=== PATIENT | female | born 1975 | race Caucasian/White ===

== ENCOUNTER 2021-10-13 12:33 | Emergency (ER) | payer OTHER, SELFPAY ==
--- NOTE | 2021-10-13 12:39 | ED.URI ---
HPI - URI/Sore Throat General Chief Complaint: Upper Respiratory Infection Stated Complaint: Cough,Sinus Time Seen by Provider: 10/13/21 13:00 Source: patient, family, RN notes reviewed and old records reviewed Mode of arrival: ambulatory Limitations: no limitations History of Present Illness HPI Narrative: 45-year-old female presents to the [facility] with complaints of cough, x1 week. Denies chest pain has had intermittent shortness of breath with cough. Denies any fevers, nausea, vomiting or diarrhea. Related Data Home Medications Medication Instructions Recorded Confirmed bupropion HCl 150 mg PO DAILY 10/13/21 10/13/21 dextroamphetamine-amphetamine 10 mg PO DAILY 10/13/21 10/13/21 lisinopril 10 mg PO DAILY 10/13/21 10/13/21 norethindrone-e.estradiol-iron 1 tablet PO DAILY 10/13/21 10/13/21 [08/29 (28)] nortriptyline 25 mg PO DAILY 10/13/21 10/13/21 Allergies Allergy/AdvReac Type Severity Reaction Status Date / Time No Known Allergies Allergy Unverified 10/13/21 12:37 Review of Systems Review of Systems: All systems reviewed & are unremarkable except as noted in HPI and below Constitutional: Constitutional: Reports no additional constitutional complaints, Denies chills, Denies fever(s) and Denies headache(s) Eyes: Eyes: Reports no additional eye complaints ENT: Reports as per HPI, Denies vertigo, Denies dizziness, Denies headache(s), Denies nasal congestion and Denies sore throat Cardiovascular: Cardiovascular: Reports no additional cardiovascular complaints, Denies chest pain, Denies syncope, Denies rapid heart rate and Denies dyspnea Respiratory: Respiratory: Reports as per HPI, Reports cough, Reports dyspnea and Denies wheezing Gastrointestinal: Gastrointestinal: Reports no additional gastrointestinal complaints, Denies abdominal pain, Denies diarrhea, Denies nausea and Denies vomiting Musculoskeletal: Musculoskeletal: Reports no additional musculoskeletal complaints and Denies numbness Integumentary/Breasts: Skin/Breast: Reports system reviewed and no additional complaints, except as docu Neurologic: Reports system reviewed and no additional complaints, except as documented, Denies vertigo, Denies dizziness, Denies syncope, Denies headache(s), Denies focal weakness and Denies numbness Psychiatric: Psychiatric: Reports no additional psychiatric complaints Allergic/Immunologic: Allergic/Immunologic: Reports no additional allergic/immunologic complaints and Denies wheezing PMFSH Family History Family History Father Family history of hypercholesterolemia Acute myocardial infarction Mother Hypertension Sibling Family history of malignant melanoma Social History Social History Smoking status: Never smoker Alcohol intake: current Comments At the time of my signature, I reviewed and agree with the nursing past medical, surgical, social, and family history. There is no relevant family history pertinent to the patient complaint. Exam Const: General: cooperative, healthy appearing, no acute distress, well developed and alert Nutritional Appearance: well nourished Orientation/consciousness: patient oriented x3 Limitations: no limitations HENMT: Head: normal to inspection Ears: hearing grossly normal bilaterally, external ears normal, TM normal on the right, mastoids normal, no periauricular adenopathy and TM abnormal with myringotomy tube present (Left ear) General nose exam: Normal external nose present, Normal nasal mucous membranes and turbinates present and No nasal discharge present Mouth: Yes Normal oral and palatal mucosa present Throat: posterior oropharynx normal, tonsils normal, uvula midline, posterior oropharynx abnormal and no uvular edema Eyes: Conjunctivae: conjunctivae normal Pupils: Equal, round and reactive pupils present Neck: Neck: normal visual inspection,
[2021-10-13 13:04] VITALS: BP 133/92; PULSE 116; RESP 18; TEMP 36.7; O2SAT 100
== END 2021-10-13 13:23 | disposition home or self-care (01) ==
PROVIDERS: Emergency Provider Nurse Practitioner
DX: J40 Bronchitis, not specified as acute or chronic (principal)
CPT/HCPCS: 99213; G0463

== ENCOUNTER → 2022-11-17 13:28 | Outpatient (CLI) | payer OTHER, SELFPAY ==
--- NOTE | ~2022-11-17 | CT_ITS ---
Non-contrast CT scan of the Abdomen and Pelvis Clinical indication: Umbilical hernia, right groin pain Technique: 2.5 mm axial scans were obtained through the abdomen and pelvis without intravenous or or al contrast. Dose reduction technique was used on this scan by utilizing automated exposure control a nd iterative reconstruction technique. The dose-length product (DLP) was 277.16 mGy-cm. Findings: Images through the lung bases reveal no abnormalities. There is no evidence of renal or ureteral calculi. The kidneys and the ureters are nondilated. The liver, spleen, pancreas, gallbladder, and adrenals appear normal. There is no aortic aneurysm. There is no evidence of bowel obstruction. No distinct evidence for acute appendicitis. Tiny fat-cont aining umbilical hernia noted. Images through the pelvis were performed. There is no evidence of ascites or lymphadenopathy. Urinary bladder unremarkable. No adnexal mass evident. Impression: Tiny fat-containing umbilical hernia. Reviewed, dictated and finalized at [facility]. Impression: Tiny fat-containing umbilical hernia.
== END ==
PROVIDERS: PCP Surgery; Visit Provider Surgery
DX: K42.9 Umbilical hernia without obstruction or gangrene (principal); R10.31 Right lower quadrant pain
CPT/HCPCS: 74176

== ENCOUNTER 2023-01-16 09:03 | Outpatient (CLI) | payer OTHER, SELFPAY ==
--- NOTE | 2023-01-16 09:00 | ECG_ITS ---
Measurements Intervals [place] Rate: 118 P: 74 CT: 116 QRS: 52 QRSD: 77 T: 65 QT: 340 QTc: 478 Interpretive Statements SINUS TACHYCARDIA INDETERMINATE AXIS ABNORMAL RHYTHM ECG NO PREVIOUS ECG AVAILABLE FOR COMPARISON Electronically Signed On 01-16-2023 12:53:04 CDT by Anthony Butt M.D.
== END 2023-01-16 09:04 | disposition home or self-care (01) ==
LOC: ANHSURGERY 09:07
PROVIDERS: Visit Provider Surgery
DX: K42.9 Umbilical hernia without obstruction or gangrene (principal); I10 Essential (primary) hypertension; Z01.818 Encounter for other preprocedural examination
CPT/HCPCS: 36415; 86850; 86900; 86901; 93005

== ENCOUNTER 2023-01-21 06:55 | Day surgery (SDC) | payer OTHER, SELFPAY ==
[2023-01-14 11:44] VITALS: BMI 21.2
--- NOTE | 2023-01-14 12:07 | PC.NURSE ---
Report to the Outpatient Waiting Room, entrance under the green pavilion located off [facility], at time 7:30 on date 01/21/23. Planned Procedure Time: 9:30. Time changes happen often and if your time is changed the preop area will call you the afternoon before. - You and your visitor will be asked to self-screen and do not enter if you have any COVID symptoms. - A mask is optional within the hospital at this time. Patients may have clear liquids (water, carbonated beverages, clear teas, apple juice) until 3 hours prior to surgery (6:30) with a maximum of 20 ounces. - No food from midnight until time of surgery Take the following medications with a SIP of water the morning of surgery: BUPROPION, INHALER IF NEEDED DO NOT STOP ANY OF YOUR OTHER PRESCRIPTION MEDICATIONS PRIOR TO SURGERY ?EXCEPT THE FOLLOWING Medications to discontinue per physician: VITAMINS/SUPPLEMENTS Date to take last dose: 01/17/23 Please no make-up, nail uzbek, hairspray, perfume, deodorant, or body powder the day of surgery. No jewelry (including any body piercings) or valuables the day of surgery, leave them at home. Please take a shower or bath the night before, or the morning of, surgery with an antibacterial soap (HIBICLENS). Wear comfortable, loose fitting clothing. - Jewelry must be removed prior to entering the operating room. Rings and piercings that are not removed may be cut off. - The hospital will not accept responsibility for valuables. - Please leave all valuables, including medications, at home the day of surgery. If you are going home after surgery, a licensed cdl bulk driver must drive you home. - NO public transportation without another adult if you receive anesthesia. - We recommend that an adult stay with you for 24 hours following discharge. - We also recommend that you do not drive, make important decision, drink alcoholic beverages, or take any drugs that were not prescribed by your health care provider for at least 24 hours after your discharge time. Follow any additional instructions given to you from your surgeon. If you or anyone in your household have experienced Covid symptoms in the past week, please notify your surgeon or the nurse liaison at the phone number below for possible testing. Telephone instructions given to PT - HARLEEN HUGO and asked if any additional questions and then verbalized understanding. Patient advised to call surgeon office or pre surgery nurse liaison [phone] if any additional questions.
--- NOTE | 2023-01-22 12:37 | SUR.PREOP ---
Paper documentation exists on this patient due to [employer] downtime on 01/21/23
== END 2023-01-21 07:30 | disposition home or self-care (01) ==
LOC: ANHSURGERY 02-13 13:56
PROVIDERS: Visit Provider Surgery
DX: K42.9 Umbilical hernia without obstruction or gangrene (principal); Z53.8 Procedure and treatment not carried out for other reasons
CPT/HCPCS: 99199

== ENCOUNTER 2023-02-04 01:00 | Day surgery (SDC) | payer OTHER, SELFPAY ==
[2023-01-30 13:36] VITALS: BMI 21.4
--- NOTE | 2023-01-30 13:44 | PC.NURSE ---
Report to the Outpatient Waiting Room, entrance under the green pavilion located off [facility], at time _0800_ on date _02/04/23_. Planned Procedure Time: _1000_. Time changes happen often and if your time is changed the preop area will call you the afternoon before. - You and your visitor will be asked to self-screen and do not enter if you have any COVID symptoms. - A mask is optional within the hospital at this time. Patients may have clear liquids (water, carbonated beverages, clear teas, apple juice) until 3 hours prior to surgery with a maximum of 20 ounces. - No food from midnight until time of surgery - Infants may have breast milk until 4 hours before surgery, infant formula 6 hours prior to surgery. - Children will be allowed to drink immediately following surgery. If applicable, please bring a bottle or sippy cup to assist with drinking. Juice, water, soda, and popsicles are readily available. For infants on formula, please bring formula the day of surgery. Pacifiers are allowed. Take the following medications with a SIP of water the morning of surgery: BUPROPION DO NOT STOP ANY OF YOUR OTHER PRESCRIPTION MEDICATIONS PRIOR TO SURGERY ?EXCEPT THE FOLLOWING Medications to discontinue per physician VITAINS 01/31/23 Date to take last dose Please no make-up, nail moldovan, hairspray, perfume, deodorant, or body powder the day of surgery. No jewelry (including any body piercings) or valuables the day of surgery, leave them at home. Please take a shower or bath the night before, or the morning of, surgery with an (HIBICLENS) antibacterial soap. Wear comfortable, loose fitting clothing. Children are encouraged to wear pajamas. - Jewelry must be removed prior to entering the operating room. Rings and piercings that are not removed may be cut off. - The hospital will not accept responsibility for valuables. - Please leave all valuables, including medications, at home the day of surgery. If you are going home after surgery, a licensed racing driver must drive you home. - NO public transportation without another adult if you receive anesthesia. - We recommend that an adult stay with you for 24 hours following discharge. - We also recommend that you do not drive, make important decision, drink alcoholic beverages, or take any drugs that were not prescribed by your health care provider for at least 24 hours after your discharge time. For Pediatric surgeries, we recommend two adults accompany the child home. Follow any additional instructions given to you from your surgeon. If you or anyone in your household have experienced Covid symptoms in the past week, please notify your surgeon or the nurse liaison at the phone number below for possible testing. Telephone instructions given to __PATIENT_and asked if any additional questions and then verbalized understanding. Patient advised to call surgeon office or pre surgery nurse liaison [phone] if any additional questions.
[2023-02-04] VITALS (12 sets, daily range): BP systolic 80–114; BP diastolic 46–71; PULSE 89–104; RESP 12–16; TEMP 36.1–36.9; O2SAT 97–100
[2023-02-04] MEDS: ACETAMINOPHEN 500 MG TABLET 1000 MG PO (08:30)
[2023-02-04] MEDS: LACTATED RINGERS 1,000 ML 30 ML IV CONT ×2 (08:40→11:28)
--- NOTE | 2023-02-04 08:55 | WPDHPUPDATE1 ---
History and Physical Update Update Date/Time: 02/04/23 08:55 History and Physical has been reviewed, including an updated exam of the patient. There are NO changes in the patient's condition. Risks, benefits, and alternatives have been discussed and questions answered. Patient agrees to proceed with procedure.
--- NOTE | 2023-02-04 08:55 | PM.IMHP ---
H&P: HPI History of Present Illness Date/Time: 02/04/23 08:55 Chief Complaint: Umbilical hernia Narrative: This is a 47-year-old woman who presents for umbilical hernia repair. She denies any changes since last seen in the office. Review of Systems Review of Systems: All systems reviewed & are unremarkable except as noted in HPI and below Constitutional: Constitutional: Denies chills, Denies fever(s), Denies headache(s) and Denies weight loss Eyes: Eyes: Denies change in vision ENT: Denies dizziness, Denies headache(s), Denies neck mass and Denies throat swelling Cardiovascular: Cardiovascular: Denies chest pain, Denies lightheadedness and Denies dyspnea Respiratory: Respiratory: Denies cough, Denies dyspnea and Denies wheezing Gastrointestinal: Gastrointestinal: Denies abdominal pain, Denies change in bowel habits, Denies nausea and Denies vomiting Genitourinary: Genitourinary: Denies hematuria and Denies dysuria Musculoskeletal: Musculoskeletal: Reports as per HPI Integumentary/Breasts: Skin/Breast: Reports as per HPI Neurologic: Denies dizziness and Denies headache(s) Allergic/Immunologic: Allergic/Immunologic: Denies throat swelling and Denies wheezing PMFSH Past Medical History Medical History Asthma Blood transfusion affecting Hypertension Seizure Surgical History Surgical History Previous section Family History Family History Father Family history of hypercholesterolemia Acute myocardial infarction Mother Hypertension Sibling Family history of malignant melanoma Social History Social History Smoking status: Never smoker Alcohol intake: current Alcohol use details: 1 DRINK A MONTH Substance use: never Substance use type: does not use Living arrangements: with family Additional living arrangements comments: CHILDREN Spiritual care concerns: No Meds Home Medications and Allergies Home Medications Medication Instructions Recorded Confirmed Type albuterol sulfate 90 mcg/actuation 2 puff inhalation QID PRN 10/13/21 01/30/23 Rx aerosol inhaler shortness of breath or wheezing #6.7 grams bupropion HCl 150 mg 24 hr tablet, 150 mg PO DAILY 10/13/21 02/04/23 History extended release dextroamphetamine-amphetamine 10 10 mg PO DAILY 10/13/21 01/30/23 History mg tablet inhalational spacing device (Space #1 ea 10/13/21 01/30/23 Rx Chamber) lisinopril 10 mg tablet 10 mg PO HS 10/13/21 01/30/23 History norethindrone 1 mg-ethinyl 1 tablet PO HS 10/13/21 01/30/23 History estradiol 20 mcg (21)-iron 75 mg (7) tablet (08/29 (28)) nortriptyline 25 mg capsule 25 mg PO HS 10/13/21 01/30/23 History cholecalciferol (vitamin D3) 125 125 mcg PO HS 01/14/23 01/30/23 History mcg (5,000 unit) tablet (Vitamin D3) omeprazole 40 mg capsule,delayed 40 mg PO BID 01/14/23 01/30/23 History release vitamin B complex 1 tablet PO DAILY 01/14/23 01/30/23 History Allergies Allergy/AdvReac Type Severity Reaction Status Date / Time No Known Allergies Allergy Verified 02/04/23 08:12 Exam Const: General: no acute distress and alert Orientation/consciousness: patient oriented x3 HENMT: Head: normocephalic and atraumatic Ears: hearing grossly normal bilaterally Face/Nose/Sinus: Normal nares present Mouth: Yes Normal oral and palatal mucosa present Eyes: Periorbital: periorbital findings normal Sclera: sclerae normal EOM: EOMs intact bilaterally Neck: Neck: normal visual inspection, no lymphadenopathy and trachea midline Chest: Chest palpation & inspection: normal inspection of the chest Resp: Effort & Inspection: normal respiratory effort Auscultation: clear to auscultation bilaterally Cardio:
--- NOTE | 2023-02-04 09:02 | WPDANESEPPF ---
Anes - Initial Pre Proc Eval Procedure: Operation Date: 02/04/23 10:00 Proposed Procedures p Laparoscopic Umbilical Hernia Repair with Mesh, Davinci Assisted - Felipe Cnitron DO Date/Time: 02/04/23 09:02 Surgeon: Felipe Cintron DO Pre Op Diagnosis: umb hernia Patient Data Age: 47 Gender: F Height: 1.6 m Weight: 55 kg Allergies Allergy/AdvReac Type Severity Reaction Status Date / Time No Known Allergies Allergy Verified 02/04/23 08:12 Home Medications Medication Instructions Recorded Confirmed Type albuterol sulfate 90 mcg/actuation 2 puff inhalation QID PRN 10/13/21 01/30/23 Rx aerosol inhaler shortness of breath or wheezing #6.7 grams bupropion HCl 150 mg 24 hr tablet, 150 mg PO DAILY 10/13/21 02/04/23 History extended release dextroamphetamine-amphetamine 10 10 mg PO DAILY 10/13/21 01/30/23 History mg tablet inhalational spacing device (Space #1 ea 10/13/21 01/30/23 Rx Chamber) lisinopril 10 mg tablet 10 mg PO HS 10/13/21 01/30/23 History norethindrone 1 mg-ethinyl 1 tablet PO HS 10/13/21 01/30/23 History estradiol 20 mcg (21)-iron 75 mg (7) tablet (Junel FE 08/29 ()) nortriptyline 25 mg capsule 25 mg PO HS 10/13/21 01/30/23 History cholecalciferol (vitamin D3) 125 125 mcg PO HS 01/14/23 01/30/23 History mcg (5,000 unit) tablet (Vitamin D3) omeprazole 40 mg capsule,delayed 40 mg PO BID 01/14/23 01/30/23 History release vitamin B complex 1 tablet PO DAILY 01/14/23 01/30/23 History Patient hx anesthesia problems: none Family hx anesthesia problems: none Results Review: All pre-operative results and documents have been reviewed as part of the pre-operative evaluation. [facility] Past Medical History Medical History Asthma Blood transfusion affecting Hypertension Seizure Surgical History Surgical History Previous section Family History Family History Father Family history of hypercholesterolemia Acute myocardial infarction Mother Hypertension Sibling Family history of malignant melanoma Social History Social History Smoking status: Never smoker Alcohol intake: current Alcohol use details: 1 DRINK A MONTH Substance use: never Substance use type: does not use Living arrangements: with family Additional living arrangements comments: CHILDREN Spiritual care concerns: No Anes - Eval Final PreProcedure Day of Procedure 02/04/23 09:02 Patient weight: normal Heart: regular rate and rhythm Lungs: clear to auscultation Airway: Mallampati scale class II Neurological: alert and oriented Last oral intake: >/= 8 hours ASA classification: II Emergent: no Anesthetic plan: proceed Anesthesia type and monitoring: general ETT Results Review: All pre-operative results and documents have been reviewed as part of the pre-operative evaluation. Informed Consent: The patient's anesthetic plan and its attendant risks and benefits were discussed with the patient/family/POA. Questions were solicited and answers provided to the satisfaction of the patient/family/POA.
[2023-02-04] MEDS: KETOROLAC 15 MG/ML VIAL (*BKC) IV PUSH (09:08)
[2023-02-04] MEDS: ceFAZolin 2 GM/D5W 50 ML 2 GM/50 ML BAG IVPB (09:24)
--- NOTE | 2023-02-04 11:21 | W.PM.PROC2 ---
Procedure Note - Detailed Date of Procedure 02/04/23 Pre-op Diagnosis umbilical hernia Post-op Diagnosis Same (1cm umbilical hernia) Procedure Performed Laparoscopic 1cm Umbilical Hernia Repair with Mesh, da Tate assisted Surgeon Felipe Cintron DO Anesthesia General and Local (Exparel) Indications This is a 47-year-old woman who presented with a painful bulge at her umbilicus that she noticed about 8 or 9 years ago she was . It has become slightly larger and causes some discomfort. She was found to have a 1-2 cm umbilical hernia physical exam. She also had a 3-4 cm rectus diastasis. Discussions were made with the patient about treatment options and decision was made to proceed with robotic assisted laparoscopic umbilical hernia repair with mesh. Findings Laparoscopic umbilical hernia repair was performed. The patient was found to have a 1 cm umbilical hernia containing preperitoneal fat. A robotic intraperitoneal onlay mesh technique was utilized for repair. The patient also had a 3-4 cm rectus diastasis. The suture for the hernia repair was started in the subxiphoid region and this was run inferiorly to reapproximate the rectus muscles in the midline and close the hernia defect. No specimens were obtained for pathology. Description of Procedure Procedure as well as risks, benefits, and alternatives were discussed with the patient. Written consent was obtained and placed in chart prior to procedure. Patient was brought back to surgical suite. She was placed supine on operating table. Time-out was done to confirm patient and procedure. She was then intubated by the anesthesia department. A bump was placed under her left hip, and the bed was flexed slightly to extend the space between her costal margin and iliac crest. Her abdomen was prepped and draped in sterile fashion using chlorhexidine prep. A 5 millimeter incision was made in the left upper quadrant, and a 5 millimeter Optiview trocar was advanced through the abdominal layers under direct visualization. Once inside the abdominal cavity, carbon dioxide insufflation was used to create a pneumoperitoneum. Her abdomen was inspected. 0.5% bupivacaine with epinephrine was infiltrated locally around the port sites. An 8 mm incision was made in the left lower quadrant and an 8 mm trocar was inserted under direct visualization. Another 8 mm incision was made in the suprapubic region a midline and an 8 mm port was placed under direct visualization. One final 8 mm incision was made in the right lower quadrant and an 8 mm port was placed under direct visualization. The robotic arms were brought up to the patient's bedside and secured to the ports. The camera and instruments were inserted, and I then moved over to the robotic console and took control of the camera and instruments. After careful thorough inspection of the abdominal cavity, I began my dissection at the hernia. The preperitoneal fat was excised using electrocautery. The falciform ligament was then also taken down using electrocautery so that I could visualize the rectus diastasis all the way up to the xiphoid region. I then measured the hernia size. The hernia measured 1 cm. The fascia was closed using an 0-Stratafix running suture in a vertical fashion. The suture was started in the subxiphoid region and this was run inferiorly to repair the rectus diastasis along with the hernia repair. The suture was run to about 5 cm inferior to the umbilicus. A Ventralight ST 15 cm x 10 cm mesh was then placed within the abdominal cavity. This was oriented vertically with the mesh centered on the hernia defect. The mesh was then secured at the center and 4 corners using 3-0 Vicryl simple interrupted sutures. The perimeter of the mesh and secured to the abdominal wall using 2 0 V lock running absorbable suture. The repair was inspected, and one final inspection was made around the abdominal cavity. The robotic instruments were then re
[2023-02-04] MEDS: HYDROmorphone HCL INJ (*CRX) 1 MG/ML SYR 0.5 MG IV PUSH ×3 (12:26→13:15)
[2023-02-04] MEDS: oxyCODONE HCL (*CRX) 5 MG TAB IR PO (13:15)
[2023-02-04] MEDS: IBUPROFEN 400 MG TABLET 800 MG PO (14:17)
== END 2023-02-04 15:21 | disposition home or self-care (01) ==
PROVIDERS: Visit Provider Surgery
PROC: (CPT 49591; principal; 2023-02-04 10:00)
DX: K42.9 Umbilical hernia without obstruction or gangrene (principal); M62.08 Separation of muscle (nontraumatic), other site; J45.909 Unspecified asthma, uncomplicated; I10 Essential (primary) hypertension; Z79.51 Long term (current) use of inhaled steroids
CPT/HCPCS: 49591; S2900; 36415; 86850; 86900; 86901; 93005; A9270; C1781; J0690; J1100; J1170; J1885; J2250; J2405; J2704; J2710; J7120